=== PATIENT | female | born 1955 | race Caucasian/White ===

== ENCOUNTER 2018-10-13 09:22 | Outpatient (REF) | payer BC, SELFPAY ==
[2018-10-13 21:55] LABS: COMMENT (LAB VIEW ONLY) 95.43 mg/dL; Microalb ug/mg Crea 27.1 ug/mg Cr
[2018-10-13 22:01] LABS: ALT 23 U/L (12-78); AST 14 U/L (15-37); Alkaline Phosphatase 93 U/L (46-116); Anion Gap 10.1 mmol/L (3-11); BUN 16 mg/dL (7-18); Bilirubin, Total 0.6 mg/dL (0.2-1.0); CO2 24.9 mmol/L (21.0-32.0); Calcium 8.9 mg/dL (8.5-10.1); Chloride 107 mmol/L (98-107); Cholesterol 229 mg/dL (50-200); Glucose 142 mg/dL (70-100); HDL Cholesterol 41 mg/dL (40-60); LDL CHOLESTEROL 161 mg/dL (<100); Potassium 4.1 mmol/L (3.5-5.1); Sodium 142 mmol/L (136-145); TSH 1.44 uIU/mL (0.358-3.74); Triglyceride 124 mg/dL (30-150)
== END 2018-10-13 09:42 ==
LOC: NCHCN 09:22
PROVIDERS: PCP Nurse Practitioner Family; Visit Provider Nurse Practitioner Family
DX: E11.9 Type 2 diabetes mellitus without complications (principal); E66.9 Obesity, unspecified
CPT/HCPCS: 80053; 80061; 83721; 82043; 82570; 84443

== ENCOUNTER 2018-11-15 15:31 | Outpatient (REF) | payer BC, SELFPAY ==
--- NOTE | 2018-11-15 15:00 | PAPFT_PTH ---
PATIENT: Aracelis Delaney LOC: [facility] U#:[id number] AGE/SX: 63/F ROOM: RE11/15/[address]: Lyudmila Cui : 1955 BED: DIS: 11/15/2018 SPEC #: [id number] RECD: 11/16/18 12:56 STATUS: KERRY REKallie #: [id number] MARIAN: 11/15/18 15:[address]: Lyudmila Alonso DEPT: [facility] Cytology RECD BY: Rebecca Purdy Tissues: 1 - CX/ENDOCX FOR PAP SMEARS Procedures: PAP THIN PREP/UVM Screening HPV DNA PROBE Comments: [id number]
[2018-11-15 21:25] LABS: ALT 22 U/L (12-78); AST 15 U/L (15-37); Albumin 4.1 g/dL (3.4-5.0); Alkaline Phosphatase 100 U/L (46-116); Anion Gap 9.9 mmol/L (3-11); BUN 14 mg/dL (7-18); Bilirubin, Total 0.5 mg/dL (0.2-1.0); CO2 27.1 mmol/L (21.0-32.0); CREATININE 0.93 mg/dL (0.55-1.02); Calcium 9.6 mg/dL (8.5-10.1); Chloride 104 mmol/L (98-107); Cholesterol 182 mg/dL (50-200); Glucose 121 mg/dL (70-100); HDL Cholesterol 45 mg/dL (40-60); LDL CHOLESTEROL 112 mg/dL (<100); Sodium 141 mmol/L (136-145); Total Protein 7.4 g/dL (6.4-8.2); Triglyceride 126 mg/dL (30-150)
== END 2018-11-15 15:51 ==
LOC: NCHCN 15:31
PROVIDERS: PCP Nurse Practitioner Family; Visit Provider Nurse Practitioner Family
DX: Z00.00 Encounter for general adult medical examination without abnormal findings (principal); I10 Essential (primary) hypertension; E78.5 Hyperlipidemia, unspecified; E11.9 Type 2 diabetes mellitus without complications; Z12.4 Encounter for screening for malignant neoplasm of cervix; Z11.51 Encounter for screening for human papillomavirus (HPV)
CPT/HCPCS: 80053; 80061; 83721; 88142; 87624

== ENCOUNTER 2019-10-06 09:04 | Outpatient (REF) | payer BC, SELFPAY ==
[2019-10-06 22:33] LABS: COMMENT (LAB VIEW ONLY) 43.54 mg/dL; Microalb ug/mg Crea 10.6 ug/mg Cr
== END 2019-10-06 09:24 ==
LOC: NCHCN 09:04
PROVIDERS: PCP Nurse Practitioner Family; Visit Provider Nurse Practitioner Family
DX: E11.9 Type 2 diabetes mellitus without complications (principal); I10 Essential (primary) hypertension
CPT/HCPCS: 82043; 82570

== ENCOUNTER 2020-04-16 21:06 | Outpatient (REF) | payer BC, SELFPAY ==
[2020-04-16 23:17] LABS: Anion Gap 9.6 mmol/L (3-11); BUN 16 mg/dL (7-18); CO2 25.4 mmol/L (21.0-32.0); Calcium 9.5 mg/dL (8.5-10.1); Calculated LDL 87 mg/dL (<100); Chloride 104 mmol/L (98-107); Cholesterol 144 mg/dL (<200); Glucose 139 mg/dL (74-106); HDL Cholesterol 43 mg/dL (40-60); Potassium 4.2 mmol/L (3.5-5.1); Sodium 139 mmol/L (136-145); Triglyceride 72 mg/dL (<150)
== END 2020-04-16 21:26 ==
LOC: NCHCN 21:06
PROVIDERS: PCP Nurse Practitioner Family; Visit Provider Nurse Practitioner Family
DX: E11.9 Type 2 diabetes mellitus without complications (principal); I10 Essential (primary) hypertension; E78.5 Hyperlipidemia, unspecified; M19.049 Primary osteoarthritis, unspecified hand
CPT/HCPCS: 80048; 80061

== ENCOUNTER 2020-10-08 19:37 | Outpatient (REF) | payer BC, SELFPAY ==
[2020-10-08 21:01] LABS: COMMENT (LAB VIEW ONLY) 29.28 mg/dL; Microalb ug/mg Crea 6.8 ug/mg Cr
== END 2020-10-08 19:57 ==
LOC: NCHCN 19:37
PROVIDERS: PCP Nurse Practitioner Family; Visit Provider Nurse Practitioner Family
DX: E11.9 Type 2 diabetes mellitus without complications (principal); I10 Essential (primary) hypertension
CPT/HCPCS: 82043; 82570

== ENCOUNTER 2021-04-04 13:15 | Outpatient (REF) | payer OTHER, SELFPAY ==
[2021-04-04 14:29] LABS: Anion Gap 10.7 mmol/L (3-11); BUN 16 mg/dL (7-18); CO2 26.3 mmol/L (21.0-32.0); Calcium 9.3 mg/dL (8.5-10.1); Chloride 105 mmol/L (98-107); Estimated GFR 55.64 (mL/min/1.73m2); Glucose 157 mg/dL (74-106); Potassium 4.6 mmol/L (3.5-5.1); Sodium 142 mmol/L (136-145); TSH 2.35 uIU/mL (0.36-3.74)
== END 2021-04-04 13:16 | disposition home or self-care (01) ==
LOC: NCHCN 13:15
PROVIDERS: PCP Nurse Practitioner Family; Visit Provider Nurse Practitioner Family
DX: E11.9 Type 2 diabetes mellitus without complications (principal); I10 Essential (primary) hypertension; E04.9 Nontoxic goiter, unspecified
CPT/HCPCS: 80048; 83036; 84443

== ENCOUNTER 2021-10-01 13:42 | Outpatient (REF) | payer OTHER, SELFPAY ==
[2021-10-01 14:36] LABS: COMMENT (LAB VIEW ONLY) 125.44 mg/dL; Microalb ug/mg Crea 6.2 ug/mg Cr
== END 2021-10-01 13:43 | disposition home or self-care (01) ==
LOC: NCHCN 13:42
PROVIDERS: PCP Nurse Practitioner Family; Visit Provider Nurse Practitioner Family
DX: E11.9 Type 2 diabetes mellitus without complications (principal); I10 Essential (primary) hypertension; M19.049 Primary osteoarthritis, unspecified hand
CPT/HCPCS: 82043; 82570

== ENCOUNTER 2022-04-01 07:55 | Outpatient (REF) | payer OTHER, SELFPAY ==
[2022-04-01 14:34] LABS: HCT 37.8 % (36.0-46.0); HGB 12.5 g/dL (11.2-15.7); MCH 30.7 pg (27.0-33.0); MCHC 33.1 % (32.0-36.0); MCV 93 fL (80-95); MPV 10.8 fL (8.0-11.0); Platelet Count 241 10^3/uL (130-400); RBC 4.07 10^6/uL (3.93-5.22); RDW 13.2 % (11.7-14.6); RDW-SD 44.7 fL; WBC 9.18 10^3/uL (4.4-10.8)
[2022-04-01 14:48] LABS: ALT 13 U/L (14-59); AST 15 U/L (15-37); Alkaline Phosphatase 104 U/L (46-116); Anion Gap 7.3 mmol/L (3-11); BUN 27 mg/dL (7-18); Bilirubin, Total 0.5 mg/dL (0.2-1.0); CO2 26.7 mmol/L (21.0-32.0); CREATININE 1.1 mg/dL (0.55-1.02); Calcium 8.9 mg/dL (8.5-10.1); Chloride 104 mmol/L (98-107); Estimated GFR 49.69 (mL/min/1.73m2); Glucose 147 mg/dL (74-106); Potassium 4.9 mmol/L (3.5-5.1); Sodium 138 mmol/L (136-145); Total Protein 7.1 g/dL (6.4-8.2)
[2022-04-01 14:50] LABS: Hemoglobin A1C 6.8 % (<5.7)
== END 2022-04-01 07:56 | disposition home or self-care (01) ==
LOC: NCHCN 07:55
PROVIDERS: PCP Nurse Practitioner Family; Visit Provider Nurse Practitioner Family
DX: I10 Essential (primary) hypertension (principal); E11.9 Type 2 diabetes mellitus without complications; Z51.81 Encounter for therapeutic drug level monitoring
CPT/HCPCS: 80053; 85027; 83036

== ENCOUNTER 2022-10-07 14:57 | Outpatient (REF) | payer OTHER, SELFPAY ==
[2022-10-07 20:55] LABS: COMMENT (LAB VIEW ONLY) 40.48 mg/dL; Microalb ug/mg Crea 7.7 ug/mg Cr
== END 2022-10-07 14:58 | disposition home or self-care (01) ==
LOC: NCHCN 14:57
PROVIDERS: PCP Nurse Practitioner Family; Visit Provider Nurse Practitioner Family
DX: E11.9 Type 2 diabetes mellitus without complications (principal); N18.31 Chronic kidney disease, stage 3a; I10 Essential (primary) hypertension
CPT/HCPCS: 82043; 82570

== ENCOUNTER 2023-03-30 17:26 | Outpatient (REF) | payer OTHER, SELFPAY ==
[2023-03-30 18:06] LABS: Anion Gap 13.1 mmol/L (3-11); BUN 19 mg/dL (7-18); CO2 27.9 mmol/L (21.0-32.0); CREATININE 1.1 mg/dL (0.55-1.02); Calcium 9.7 mg/dL (8.5-10.1); Chloride 112 mmol/L (98-107); Estimated GFR 55.07 (mL/min/1.73m2); Glucose 140 mg/dL (74-106); Potassium 4.2 mmol/L (3.5-5.1); Sodium 153 mmol/L (136-145)
[2023-03-30 19:10] LABS: Hemoglobin A1C 6.6 % (<5.7)
[2023-04-01 10:50] LABS: HIV-1/2 Ag & Ab Screen Negative (Negative)
[2023-04-01 11:17] LABS: Hepatitis C Ab w Rflx HCV PCR Negative (Negative)
== END 2023-03-30 17:27 | disposition home or self-care (01) ==
LOC: NCHCN 17:26
PROVIDERS: PCP Nurse Practitioner Family; Visit Provider Nurse Practitioner Family
DX: E11.9 Type 2 diabetes mellitus without complications (principal); I10 Essential (primary) hypertension; Z00.00 Encounter for general adult medical examination without abnormal findings; Z11.4 Encounter for screening for human immunodeficiency virus [HIV]; Z11.59 Encounter for screening for other viral diseases
CPT/HCPCS: 80048; 86803; 87389; 83036

== ENCOUNTER 2023-10-05 11:41 | Outpatient (REF) | payer OTHER, SELFPAY ==
[2023-10-05 22:39] LABS: COMMENT (LAB VIEW ONLY) 90.08 mg/dL; Microalb ug/mg Crea 6.5 ug/mg Cr
== END 2023-10-05 11:42 | disposition home or self-care (01) ==
LOC: NCHCN 11:41
PROVIDERS: PCP Nurse Practitioner Family; Visit Provider Nurse Practitioner Family
DX: E11.9 Type 2 diabetes mellitus without complications (principal)
CPT/HCPCS: 82043; 82570

== ENCOUNTER 2024-03-29 08:17 | Outpatient (REF) | payer OTHER, SELFPAY ==
[2024-03-29 15:35] LABS: BUN 18 mg/dL (7-18); Calcium 9.4 mg/dL (8.5-10.1); Chloride 106 mmol/L (98-107); Estimated GFR 61.36 (mL/min/1.73m2); Glucose 143 mg/dL (74-106); Potassium 4.4 mmol/L (3.5-5.1); Sodium 141 mmol/L (136-145)
[2024-03-29 15:56] LABS: Hemoglobin A1C 6.7 % (<5.7)
== END 2024-03-29 08:18 | disposition home or self-care (01) ==
LOC: NCHCN 08:17
PROVIDERS: PCP Nurse Practitioner Family; Visit Provider Nurse Practitioner Family
DX: E11.9 Type 2 diabetes mellitus without complications (principal); I10 Essential (primary) hypertension
CPT/HCPCS: 80048; 83036

== ENCOUNTER 2024-10-24 17:02 | Outpatient (REF) | payer MEDICARE, SELFPAY ==
[2024-10-24 16:31] LABS: COMMENT (LAB VIEW ONLY) 166.58 mg/dL; Microalb ug/mg Crea 4.7 ug/mg Cr
== END 2024-10-24 17:03 | disposition home or self-care (01) ==
LOC: NCHCN 17:02
PROVIDERS: PCP Nurse Practitioner Family; Visit Provider Nurse Practitioner Family
DX: E11.9 Type 2 diabetes mellitus without complications (principal)
CPT/HCPCS: 82043; 82570

== ENCOUNTER → 2024-11-10 09:48 | Outpatient (BNVA) | payer MEDICARE, SELFPAY | PROVIDERS: PCP Nurse Practitioner Family; Referring Provider Nurse Practitioner Family; Visit Provider Physical Therapy Assistant | DX: Z12.11 Encounter for screening for malignant neoplasm of colon (principal); I10 Essential (primary) hypertension ==

== ENCOUNTER 2024-12-14 09:19 | Day surgery (SDC) | payer MEDICARE, SELFPAY ==
[2024-12-14 09:50] VITALS: BP 143/74; PULSE 80; RESP 16; TEMP 36.8; O2SAT 95
--- NOTE | 2024-12-14 09:50 | W.ANESPRE ---
General Info Date of Service Date Performed: 12/14/24 Height: 5 ft 2 in Weight: 85.729 kg Body Mass Index (BMI): 34.5 Surgical Procedure: Operation Date: 12/14/24 10:50 Proposed Procedure Side Surgeon tony Aguilar MD Meds Allergies and Home Medications Allergies Allergy/AdvReac Type Severity Reaction Status Date / Time amoxicillin Allergy Unknown rash Verified 12/14/24 10:04 Home Medication ?Medication ?Instructions ?Recorded atorvastatin 40 mg tablet 40 mg PO QHS 11/03/24 cholecalciferol (vitamin D3) 25 25 mcg PO DAILY 11/03/24 mcg (1,000 unit) capsule lisinopril 20 1 tab PO DAILY 11/03/24 mg-hydrochlorothiazide 12.5 mg tablet meloxicam 15 mg tablet 15 mg PO DAILY 11/03/24 bisacodyl 5 mg tablet,delayed 5 mg PO ONCE #4 tabs 11/10/24 release (Dulcolax (bisacodyl)) polyethylene glycol 3350 17 17 g PO ONCE #238 grams 11/10/24 gram/dose oral powder Current Visit Medications: Current Medications Generic Name Dose Route Start Last Admin Trade Name Freq PRN Reason Stop Dose Admin Ringer's Solution 1,000 mls @ 80 mls/hr 12/13/24 09:15 IV 01/12/25 09:14 INFUSION YENNIFER Ringer's Solution 1,000 mls @ 80 mls/hr 12/14/24 06:00 IV 01/12/25 23:59 INFUSION YENNIFER IV Miscellaneous Supplies 1 each 12/14/24 06:00 Iv Access IV 01/12/25 23:59 DIRECTED YENNIFER Sodium Chloride 0 ml 12/14/24 06:00 Normal Saline Flush 10 Ml Syr IV 01/12/25 23:59 PRN PRN Sodium Chloride 0 ml 12/14/24 06:00 Normal Saline 10 Ml Vial IJ 01/12/25 23:59 DIRECTED PRN Sterile Water 0 ml 12/14/24 06:00 Water,Injection,Sterile 10 Ml Vial IJ 01/12/25 23:59 DIRECTED PRN [facility] Medical History Medical History (Updated 12/14/24 @ 10:20 by Manuel Aguilar MD) Arthritis HTN (hypertension) High cholesterol Simple goiter Senile osteopenia Presbyopia Macular drusen Edema of lower extremity Surgical History Surgical History S/P lumpectomy, right breast Tobacco Smoking/Tobacco Use Status: Never Alcohol Alcohol Intake: current Alcohol intake frequency: holidays/special occasions only Substance Use Substance use: Never Substance use type: does not use Vital Signs and Lab Results Vital Signs Most Recent Vital Signs in EMR: Temp Pulse Resp BP Pulse Ox 36.8 C 80 16 143/74 H 95 12/14/24 09:50 12/14/24 09:50 12/14/24 09:50 12/14/24 09:50 12/14/24 09:50 Lab Results Blood Type / Crossmatch: No Data to Display Complete Blood Count: No Data to Display Complete Metabolic Panel: No Data to Display Liver Function Panel: No Data to Display Coagulation Panel: No Data to Display Cardiac Panel: No Data to Display Arterial Blood Gas: No Data to Display Venous Blood Gas: No Data to Display Pancreas Panel: No Data to Display Thyroid Panel: No Data to Display Infectious Disease: No Data to Display Blood Cultures: No Data to Display Toxicology Panel: No Data to Display Anesthesia Assessment and Plan Anesthesia History Personal History: No History of Anesthesia Complications Family History: No Family History of Anesthesia Complications Exercise Tolerance Exercise Tolerance: Metabolic Equivalents>4 Pertinent Negatives Pertinent Negatives: No Symptoms of GERD, No Major Cardiovascular Symptoms or Complaints and No Major Pulmonary Symptoms or Complaints Cardiac & Pulmonary Exam Cardiac Exam: Normal S1/S2 Heart Sounds Pulmonary Exam: Clear Bilateral Breath Sounds Implantable Cardiac Device Does patient have a Pacemaker or an ICD?: No Airway Exam Known Difficult Airway: No Mallampati Class: 2 Mouth Opening: Normal (> 3cm) Thyromental Distance: Greater than 3 cm Neck Range of Motion: Full ROM Neck Circumference: Normal Teeth Condition: Edentulous ASA Classification ASA Score: ASA 2 Emergency Case?: No NPO Status NPO Status: NPO Clears >2 hours, Solids >8 hours Anesthesia Plan Resuscitation Status: Full Code Anesthesia Technique: General Anesthesia Airway Planned: Natural Airway Monitors Used: Standard Monitors Preoperative Comments:: 69 y/o female with history of HTN and GERD presents for colonoscopy screening. She reports her last Colonoscopy was several years ago at [facility].
[2024-12-14] MEDS: Lactated Ringers 1,000 ML 80 ML IV (10:15)
--- NOTE | 2024-12-14 10:16 | W.SURGCON ---
Date of service: 12/14/24 Time of Service: 10:19 Assessment and Plan Assessment and plan (1) Encounter for screening colonoscopy: Status: Acute Assessment and plan: 69-year-old woman due for surveillance colonoscopy with no increased risk factors and no symptoms. Overall plan: Colonoscopy History of Present Illness Narrative: 69-year-old woman is due for a surveillance colonoscopy. She had colon polyps on her last colonoscopy about 5 years ago. She has no family history of colon cancer. She has no symptoms of concern. She has intra-abdominal surgical history of tubal ligation only. PFSH All Active Problems (Updated 12/14/24 @ 10:20 by Manuel Aguilar MD) Encounter for screening colonoscopy (Acute) Medical History (Updated 12/14/24 @ 10:20 by Manuel Aguilar MD) Arthritis HTN (hypertension) High cholesterol Simple goiter Senile osteopenia Presbyopia Macular drusen Edema of lower extremity Surgical History S/P lumpectomy, right breast Social History (Updated 11/10/24 @ 11:33 by KAMERON Parson) Smoking/Tobacco Use Status: Never Smoking risk assessment performed?: Yes Alcohol Intake: current Alcohol Intake frequency: holidays/special occasions only Drug use: Never Substance use type: does not use Housing: house Do you feel safe at home: Yes Do you feel safe in your relationship?: Yes Exam Narrative Exam Narrative: Gen: Non-toxic, comfortable and interactive Neuro: Alert and oriented x3 Psych: Good mood and affect. Good insight and understanding into condition. Chest: Non-labored breathing, no wheezing, no visible shortness of breath. Heart: Regular Results Last Vital Signs Temp 98.2 F 12/14/24 09:50 Pulse 80 12/14/24 09:50 Resp 16 12/14/24 09:50 BP 143/74 H 12/14/24 09:50 Pulse Ox 95 12/14/24 09:50
--- NOTE | 2024-12-14 10:20 | W.COLOREPORT ---
Date of service: 12/14/24 Time of Service: 10:20 Colonoscopy Report Procedure Description: PROCEDURES PERFORMED: 1. Colonoscopy PREOPERATIVE DIAGNOSIS: Surveillance colonoscopy POSTOPERATIVE DIAGNOSIS: Mild no polyps. Sigmoid diverticulosis, grade 2 internal hemorrhoids SURGEON: Anderson Aguilar MD INDICATION FOR PROCEDURE: the patient is a 69-year-old woman due for surveillance colonoscopy. Personal history of adenomatous polyps. No family history of colon cancer. No symptoms. FINDINGS: Normal terminal ileum. No polyps. In the sigmoid colon is some scattered diverticular disease. No stricture or fibrosis or inflammation. In the rectum there are grade 2 internal hemorrhoids present at all 3 columns. SURVEILLANCE interval/FOLLOW-UP: 7 years because of the personal history of adenomatous polyps but did not find any this time. SPECIMENS: None EBL: Minimal COMPLICATIONS: None QUALITY of prep: Excellent Procedure in detail: The patient gave written consent and was in agreement with the indications, the potential risks as well as the benefits of the procedure. They were taken to the endoscopy suite and laid in the left lateral decubitus position. A timeout was performed and anesthesia was administered which was tolerated well. I started the procedure. Digital rectal and visual examination was performed and grossly within normal limits. A well-lubricated flexible colonoscope was then introduced and passed without any notable difficulty all the way to the cecum identified by the ileocecal valve and the appendiceal orifice. The ileum was intubated and looked normal. The scope was then slowly withdrawn with the above-noted findings. The patient tolerated the procedure well and was taken to the PACU in hemodynamically stable condition.
--- NOTE | 2024-12-14 10:21 | W.PM.DSUDISC ---
Date of service: 12/14/24 Discharge Plan Disposition Patient Disposition: Home Condition: Good Discharge Details Attending Provider: Manuel Aguilar Primary Care Provider: Lyudmila Alonso Home Meds and New Rx's Prescriptions: No Action bisacodyl [Dulcolax (bisacodyl)] 5 mg tablet,delayed release (DR/EC) 5 mg PO ONCE Qty: 4 0RF Rx Instructions: Take per colonoscopy instructions provided by ordering providers office polyethylene glycol 3350 17 gram/dose powder 17 g PO ONCE Qty: 238 0RF Rx Instructions: Take per colonoscopy instructions provided by ordering providers office atorvastatin 40 mg tablet 40 mg PO QHS cholecalciferol (vitamin D3) 25 mcg (1,000 unit) capsule 25 mcg PO DAILY lisinopril-hydrochlorothiazide 20-12.5 mg tablet 1 tab PO DAILY meloxicam 15 mg tablet 15 mg PO DAILY Discharge Instructions Additional Instructions: FINDINGS: No polyps. Your colon is overall pretty healthy. You have some mild hemorrhoid disease and mild diverticular disease which is extremely common, benign and nothing needs to be done about it. Repeat another colonoscopy in 7 years because of your history of polyps previously. Activity:: Activity as Tolerated Diet:: As Tolerated DS: Diagnosis Discharge Diagnosis (1) Encounter for screening colonoscopy: Status: Acute
[2024-12-14 10:32] VITALS: BMI 34.5
[2024-12-14 10:45] VITALS: BP 122/62; PULSE 79; RESP 16; TEMP 36.8; O2SAT 96
--- NOTE | 2024-12-14 10:51 | W.ANESPOSTOP ---
Postoperative Evaluation Date, Time and Location Date Performed: 12/14/24 Time Performed: 10:46 Patient Location: Day Surgery Unit Vital Signs Most Recent Imported Vital Signs: Most Recent Vital Signs Temp Pulse Resp BP Pulse Ox 36.8 C 79 16 122/62 96 12/14/24 10:45 12/14/24 10:45 12/14/24 10:45 12/14/24 10:45 12/14/24 10:45 Pain Score Most Recent Pain Score: Most Recent Pain Score Pain Level 0 12/14/24 10:45 Assessment Mental Status: Awake (Alert & Oriented to Patient Baseline) Airway and Respiratory Function: Patent airway with normal (patient baseline) respiratory exam Cardiovascular Function: Hemodynamically Stable Hydration Status: Adequately Hydrated Nausea & Vomiting: No Nausea or Vomiting Pain: Pt. Denies Any Pain Peripheral Nerve Block: Patient did not receive a nerve block
[2024-12-14 11:21] VITALS: BP 134/67; PULSE 66; RESP 16; TEMP 36.7; O2SAT 98
== END 2024-12-14 11:35 | disposition home or self-care (01) ==
PROVIDERS: PCP Nurse Practitioner Family; Visit Provider Student in an Organized Health Care Education/Training Program
PROC: 0DJD8ZZ Inspection of Lower Intestinal Tract, Via Natural or Artificial Opening Endoscopic (ICD-10-PCS; CPT 45378; principal; 2024-12-14 10:45)
DX: Z12.11 Encounter for screening for malignant neoplasm of colon (principal); K64.1 Second degree hemorrhoids; K57.30 Diverticulosis of large intestine without perforation or abscess without bleeding; Z86.0101 Personal history of adenomatous and serrated colon polyps
CPT/HCPCS: G0105; J2003; J2704

== ENCOUNTER 2025-04-18 17:32 | Outpatient (REF) | payer MEDICARE, SELFPAY ==
[2025-04-18 15:50] LABS: HCT 37.2 % (36.0-46.0); HGB 12.2 g/dL (11.2-15.7); MCH 30.2 pg (27.0-33.0); MCHC 32.8 % (32.0-36.0); MCV 92 fL (80-95); MPV 10.9 fL (8.0-11.0); Platelet Count 231 10^3/uL (130-400); RBC 4.04 10^6/uL (3.93-5.22); RDW 13.1 % (11.7-14.6); RDW-SD 43.7 fL; WBC 6.36 10^3/uL (4.4-10.8)
[2025-04-18 15:51] LABS: Anion Gap 8.6 mmol/L (3-11); BUN 29 mg/dL (7-18); CO2 27.4 mmol/L (21.0-32.0); Calcium 9.1 mg/dL (8.5-10.1); Chloride 108 mmol/L (98-107); Estimated GFR 60.98 (mL/min/1.73m2); Glucose 139 mg/dL (74-106); Potassium 4.4 mmol/L (3.5-5.1); Sodium 144 mmol/L (136-145)
[2025-04-18 16:47] LABS: Hemoglobin A1C 6.7 % (<5.7)
== END 2025-04-18 17:33 | disposition home or self-care (01) ==
LOC: NCHCN 17:32
PROVIDERS: PCP Nurse Practitioner Family; Visit Provider Nurse Practitioner Family
DX: E11.9 Type 2 diabetes mellitus without complications (principal); Z13.0 Encounter for screening for diseases of the blood and blood-forming organs and certain disorders involving the immune mechanism
CPT/HCPCS: 80048; 85027; 83036